=== PATIENT | female | born 1970 | race Caucasian/White ===

== ENCOUNTER 2018-06-20 12:46 | Inpatient (IN) | payer BC ==
--- NOTE | 2018-06-20 13:45 | C.PDOC ---
History Of Present Illness 47 year old female with PMHx of hypothyroidism who was sent in by PMD Dr. Nelson for redness and swelling to left lower face. Patient states she noticed a pimple in the area 2 days ago, which started draining clear and bloody fluid yesterday. Swelling, redness and 10/10 pain began yesterday as well. Treatment with warm compresses provided mild improvement from the pain. Denies fever, chills, shortness of breath, chest pain, difficulty swallowing, tongue swelling. <Geovanna Pulido P - Last Filed: 06/20/18 17:08> <Geovanna Pulido P - Last Filed: 06/20/18 17:08> <Kristy Alford - Last Filed: 06/20/18 17:21> Time Seen by Provider: 06/20/18 13:15 Chief Complaint (Nursing): Abnormal Skin Integrity Past Medical History Vital Signs: Last Vital Signs Temp 99.6 F 06/20/18 13:08 Pulse 104 H 06/20/18 13:08 Resp 18 06/20/18 13:08 BP 126/84 06/20/18 13:08 Pulse Ox 98 06/20/18 13:08 - Medical History PMH: Hyperthyroidism Surgical History: Hernia Repair (umbilical hernia) Other Surgeries: nasal polypectomy, rectocele repair Family History: States: CAD - Social History Hx Alcohol Use: No Hx Substance Use: No - Immunization History Hx Tetanus Toxoid Vaccination: No Hx Influenza Vaccination: No Hx Pneumococcal Vaccination: No <PulidoGeovanna P - Last Filed: 06/20/18 17:08> Vital Signs: Last Vital Signs Temp 98.6 F 06/20/18 15:48 Pulse 99 H 06/20/18 15:48 Resp 16 06/20/18 15:48 BP 116/74 06/20/18 15:48 Pulse Ox 98 06/20/18 15:48 <Kristy Alford - Last Filed: 06/20/18 17:21> Review Of Systems Constitutional: Negative for: Fever, Chills, Sweats ENT: Negative for: Ear Pain, Ear Discharge, Nose Pain, Throat Pain, Throat Swelling Cardiovascular: Negative for: Chest Pain Respiratory: Negative for: Cough, Shortness of Breath Gastrointestinal: Negative for: Nausea, Vomiting, Abdominal Pain Skin: Positive for: Other (redness, swelling, pain to L lower face) <Geovanna Pulido P - Last Filed: 06/20/18 17:08> Physical Exam - Physical Exam Appears: No Acute Distress Skin: Other (redness, swelling and tenderness to palpation from mid chin to L corner of mouth. Area is indurated with central punctate wound not actively draining fluid. No increased warmth noted.) Head: Atraumatic Eye(s): bilateral: Normal Inspection, PERRL, EOMI Nose: Other (+nasal congestion) Oral Mucosa: Moist, No Drooling Tongue: No Swelling, Other (deviated to the R, otherwise appears normal) Lips: Swelling (mild swelling to L lower lip, otherwise normal) Teeth: Other (missing several upper and lower molars, otherwise normal de ntition) Throat: Normal, No Erythema, No Exudate, No Drooling Neck: Normal ROM Lymphatic: Other (Bilateral tender lymphadenopathy) Cardiovascular: Rhythm Regular (tachycardic) Respiratory: Normal Breath Sounds, No Decreased Breath Sounds, No Accessory Muscle Use, No Rales, No Rhonchi, No Wheezing <Geovanna Pulido P - Last Filed: 06/20/18 17:08> ED Course And Treatment - Laboratory Results Result Diagrams: 06/20/18 14:01 06/20/18 14:01 O2 Sat by Pulse Oximetry: 98 <Geovanna Pulido P - Last Filed: 06/20/18 17:08> - Laboratory Results Result Diagrams: 06/20/18 14:01 06/20/18 14:01 Lab Interpretation: Abnormal (WBC 15.8 with left shift) - CT Scan/US Soft tissue neck Other Rad Studies (CT/US): Read By Radiologist, Radiology Report Reviewed CT/US Interpretation: Accession No. : [id number]. Patient Name / ID : LIANNE PAULINO / [id number]. Exam Date : 06/20/2018 15:25:51 ( Approved ). Study Comment : Sex / Age : F / 47Y. Creator : Kathleen White. Dictator : Rory Cottrell MD. Geographic Information Systems Engineer : Flux Tube Attendant : Rory Mack MD. Approver2 : Report Date : 06/20/2018 15:37:27. My Comment : . Date of service: 06/20/2018. PROCEDURE: CT NECK WITHOUT CONTRAST. HISTORY: r/o left submandibular abscess. COMPARISON: None available. TECHNIQUE: CT of the neck without intravenous contrast. Coronal and sagittal reformats generated. Radiation dose: Total exam DLP = 370.58 mGy-cm. This CT exam was performed using one or more of the following dose reduction techniques: Automated exposure control, adjustment of the mA and/or kV according to patient size, and/or use of iterative reconstruction technique. FINDINGS: NASOPHARYNX: Unremarkable. SUPRAHYOID NECK: There is prominent edema related to anterior and lateral left mandibular soft tissues primarily at the level of the horizontal ramus without emphysematous changes associated. Lack images contrast limits evaluation significantly an abscess is difficult to completely exclude here. Follow-up contrast CT is advised for better characterization. The changes extend into the superficial and deep left mandibular fat. Edematous changes may extend over to the superficial and deep subcutaneous fat anterior to the distal segment right horizontal ramus overlying mandibular soft tissues as well. The oral cavity and remainder the pharynx appear unremarkable grossly though partially obscured by artifact related to dental hardware. Shotty submandibular triangle lymph nodes are identified as well as at the upper jugulodigastric distribution. The visualized pharynx appears unremarkable. INFRAHYOID NECK: Unremarkable larynx, hypopharynx, and supraglottic space. Vocal cords intact. MASS: None. GLANDS: Parotid and submandibular glands unremarkable. Normal size thyroid gland, without nodule. LYMPH NODES: Normal. No lymphadenopathy. CERVICAL SPINE: No fracture or focal lesion. OTHER FINDI NGS: Extensive bilateral frontal, ethmoid and sphenoid sinusitis with mild bilateral maxillary mucosal inflammatory changes. IMPRESSION: Prominent pre mandibular edematous soft tissues are identified overlying the left horizontal mandibular ramus underlying abscess difficult to exclude given lack images contrast. Some may extend over to the right pre mandibular soft tissues crossing the mental region without definite abscess. Follow-up CT with contrast is recommended. Please see discussion above. Extensive sinusitis as discussed above. Progress Note: Patient seen and examined. Obvious swelling iwth induration along left mandible associated with shotty lymphadenopathy. No obvious oral swelling or sublingular swelling. No difficulty breathing or swallowing. - Physician Consult Information Time Consulting Physician Contacted: 17:03 Physician Contacted: Esvin Bradley-Galindo Outcome Of Conversation: Patient to be admitted to Dr Blake's service for IV antibiotics <Kristy Alford - Last Filed: 06/20/18 17:21> Medical Decision Making Medical Decision Making: Plan: CBC CMP CT neck soft tissue w/o contrast (due to patient iodine allergy) Ibuprofen for pain <Geovanna Pulido P - Last Filed: 06/20/18 17:08> Disposition <Geovanna Pulido - Last Filed: 06/20/18 17:08> - Disposition Disposition Time: 17:21 - POA Present On Arrival: None <Kristy Alford - Last Filed: 06/20/18 17:21> - Disposition Disposition: HOSPITALIZED Condition: STABLE - Clinical Impression Clinical Impression: Facial cellulitis
[2018-06-20 14:11] LABS: BASO # 0.1 K/uL (0.0-0.2); BASO % 0.5 % (0.0-2.0); EOS # 0.6 K/uL (0.0-0.7); HEMOGLOBIN 15.2 g/dL (11.0-16.0); LYMPH # 1.2 K/uL (1.0-4.3); LYMPH % 7.8 % (20.0-40.0); MEAN CELL VOLUME 89.7 fL (81.0-99.0); MEAN CORPUSCULAR HEMOGLOBIN 30.1 pg (27.0-31.0); MEAN CORPUSCULAR HGB CONC 33.6 g/dL (33.0-37.0); MEAN PLATELET VOLUME 9.5 fL (7.2-11.7); MONO # 1.2 K/uL (0.0-0.8); MONO % 7.3 % (0.0-10.0); NEUT # 12.7 K/uL (1.8-7.0); NEUT % 80.4 % (50.0-75.0); NRBC % 0.1 % (0.0-2.0); PLATELET COUNT 227 K/uL (130-400); RBC 5.05 Mil/uL (3.80-5.20); WHITE BLOOD COUNT 15.8 K/uL (4.8-10.8)
[2018-06-20 14:25] LABS: ALB/GLOB RATIO 1.4 (1.0-2.1); ALBUMIN 4.7 g/dL (3.5-5.0); ALT/SGPT 44 U/L (9-52); AST/SGOT 29 U/L (14-36); BLOOD UREA NITROGEN 15 mg/dL (7-17); CALCIUM 9.3 mg/dl (8.6-10.4); GFR NON-AFRICAN AMERICAN > 60
[2018-06-20 15:54] LABS: EOSINOPHIL 6 % (0-4); LYMPHOCYTE 2 % (20-40); MONOCYTE 6 % (0-10); NEUTROPHIL 86 % (50-75); PLATELET ESTIMATE NORMAL (NORMAL); TOTAL CELLS COUNTED 100
--- NOTE | 2018-06-20 16:47 | CT ---
Date of service: 06/20/2018 PROCEDURE: CT NECK WITHOUT CONTRAST HISTORY: r/o left submandibular abscess COMPARISON: None available. TECHNIQUE: CT of the neck without intravenous contrast. Coronal and sagittal reformats generated. Radiation dose: Total exam DLP = 370.58 mGy-cm. This CT exam was performed using one or more of the following dose reduction techniques: Automated exposure control, adjustment of the mA and/or kV according to patient size, and/or use of iterative reconstruction technique. FINDINGS: NASOPHARYNX: Unremarkable. SUPRAHYOID NECK: There is prominent edema related to anterior and lateral left mandibular soft tissues primarily at the level of the horizontal ramus without emphysematous changes associated. Lack images contrast limits evaluation significantly an abscess is difficult to completely exclude here. Follow-up contrast CT is advised for better characterization. The changes extend into the superficial and deep left mandibular fat. Edematous changes may extend over to the superficial and deep subcutaneous fat anterior to the distal segment right horizontal ramus overlying mandibular soft tissues as well. The oral cavity and remainder the pharynx appear unremarkable grossly though partially obscured by artifact related to dental hardware. Shotty submandibular triangle lymph nodes are identified as well as at the upper jugulodigastric distribution. The visualized pharynx appears unremarkable. INFRAHYOID NECK: Unremarkable larynx, hypopharynx, and supraglottic space. Vocal cords intact. MASS: None. GLANDS: Parotid and submandibular glands unremarkable. Normal size thyroid gland, without nodule. LYMPH NODES: Normal. No lymphadenopathy. CERVICAL SPINE: No fracture or focal lesion. OTHER FINDINGS: Extensive bilateral frontal, ethmoid and sphenoid sinusitis with mild bilateral maxillary mucosal inflammatory changes. IMPRESSION: Prominent pre mandibular edematous soft tissues are identified overlying the left horizontal mandibular ramus underlying abscess difficult to exclude given lack images contrast. Some may extend over to the right pre mandibular soft tissues crossing the mental region without definite abscess. Follow-up CT with contrast is recommended. Please see discussion above. Extensive sinusitis as discussed above.
[2018-06-20] MEDS ORDERED: cefTRIAXone IV 1 gm in Dextros 50 ML IVPB ONE (17:18)
[2018-06-20] MEDS ORDERED: Vancomycin 1 GM 1 GM/250 ML BAG IV SCH (17:30)
[2018-06-20] MEDS ORDERED: cefTRIAXone 1 gm 1 GM/100 ML BAG IVPB ONE (17:39)
[2018-06-20] MEDS ORDERED: Vancomycin 1 GM 1 GM/250 ML BAG IVPB ONE (17:39)
[2018-06-20 18:35] VITALS: RESP 20
--- NOTE | 2018-06-20 19:20 | CP.PCM.CON ---
History of Present Illness - History of Present Illness History of Present Illness: 47 year old female with PMHx of hypothyroidism who was sent in by PMD Dr. Nelson for redness and swelling to left lower face. Patient states she noticed a pimple in the area 2 days ago, which started draining clear and bloody fluid yesterday. Swelling, redness and 10/10 pain began yesterday as well. denies dental pain or discomfort large indurated area on lower mandible lateral to midline with pain on palpation but no purulence + warmth and redness denies allergies - Medical History PMH: Hyperthyroidism Surgical History: Hernia Repair (umbilical hernia) Other Surgeries: nasal polypectomy, rectocele repair Family History: States: CAD Review of Systems - Review of Systems All systems: reviewed and no additional remarkable complaints except Past Patient History - Infectious Disease Hx of Infectious Diseases: None - Past Social History Smoking Status: Never Smoked - ENDOCRINE/METABOLIC Hx Hyperthyroidism: Yes - PSYCHIATRIC Hx Substance Use: No - SURGICAL HISTORY Hx Surgeries: Yes Hx Herniorrhaphy: Yes Other/Comment: BOWEL RESECTION - ANESTHESIA Hx Anesthesia: Yes Hx Anesthesia Reactions: No Meds Allergies/Adverse Reactions: Allergies Allergy/AdvReac Type Severity Reaction Status Date / Time iodine Allergy Verified 06/20/18 13:07 - Medications Medications: Current Medications Enoxaparin Sodium (Lovenox) 40 mg SC DAILY [facility] Vancomycin HCl (Vancomycin 1gm In Normal Saline Addvantage) 1 gm in 250 mls @ 166.667 mls/hr IV STAT [facility]; Protocol Last Admin: 06/20/18 18:01 Dose: 166.667 mls/hr Vancomycin HCl 1,000 mg/ (Sodium Chloride) 250 mls @ 166.6 mls/hr IVPB Q12H [facility]; Protocol Piperacillin Sod/Tazobactam Sod (Zosyn 3.375 Gm Iv Premix) 3.375 gm in 50 mls @ 100 mls/hr IVPB Q8H [facility]; Protocol Levothyroxine Sodium (Synthroid) 25 mcg PO DAILY@0630 [facility] Physical Exam - Constitutional Appears: Chronically Ill - Head Exam Head Exam: ATRAUMATIC, NORMOCEPHALIC Additional comments: facial swelling + - Eye Exam Eye Exam: EOMI - ENT Exam ENT Exam: Mucous Membranes Dry - Neck Exam Neck exam: Negative for: Lymphadenopathy - Respiratory Exam Respiratory Exam: Decreased Breath Sounds - Cardiovascular Exam Cardiovascular Exam: REGULAR RHYTHM - GI/Abdominal Exam GI & Abdominal Exam: Diminished Bowel Sounds - Rectal Exam Rectal Exam: Deferred - Exam Exam: NORMAL INSPECTION - Extremities Exam Extremities exam: Negative for: pedal edema - Back Exam Back exam: absent: CVA tenderness (L), CVA tenderness (R) - Neurological Exam Neurological exam: Alert, CN II-XII Intact, Oriented x3, Reflexes Normal - Psychiatric Exam Psychiatric exam: Normal Mood - Skin Skin Exam: Dry Results - Vital Signs Recent Vital Signs: Last Vital Signs Temp 99.2 F 06/20/18 18:34 Pulse 87 06/20/18 18:34 Resp 20 06/20/18 18:34 BP 125/74 06/20/18 18:34 Pulse Ox 100 06/20/18 18:34 - Labs Result Diagrams: 06/21/18 08:11 06/21/18 08:11 Labs: Laboratory Results - last 24 hr 06/20/18 06/20/18 14:01 14:01 WBC 15.8 H RBC 5.05 Hgb 15.2 Hct 45.3 MCV 89.7 MCH 30.1 MCHC 33.6 RDW 14.0 Plt Count 227 MPV 9.5 Neut % (Auto) 80.4 H Lymph % (Auto) 7.8 L Brooke % (Auto) 7.3 Eos % (Auto) 4.0 Baso % (Auto) 0.5 Neut # (Auto) 12.7 H Lymph # (Auto) 1.2 Brooke # (Auto) 1.2 H Eos # (Auto) 0.6 Baso # (Auto) 0.1 Neutrophils % (Manual) 86 H Lymphocytes % (Manual) 2 L Monocytes % (Manual) 6 Eosinophils % (Manual) 6 H Platelet Estimate Normal Sodium 138 Potassium 4.8 Chloride 102 Carbon Dioxide 23 Anion Gap 20 BUN 15 Creatinine 0.5 L Est GFR ( Amer) > 60 Est GFR (Non-Af Amer) > 60 Random Glucose 79 Calcium 9.3 Total Bilirubin 1.0 AST 29 ALT 44 Alkaline Phosphatase 81 Total Protein 8.1 Albumin 4.7 Globulin 3.3 Albumin/Globulin Ratio 1.4 Assessment & Plan (1) Facial cellulitis Status: Acute - Assessment and Plan (Free Text) Assessment: mAY NEED i AND d CONSIDER SURGICAL CONSULT
--- NOTE | 2018-06-20 19:29 | CP.PCM.HP ---
History of Present Illness - History of Present Illness History of Present Illness: COMPREHENSIVE HISTORY & PHYSICAL EXAM HPI Patient is admitted with swelling of the lower part of the jaw. Patient originally had a pimple which grew suddenly in her short-term with moderate amount of swelling and induration in the lower part of the left side of the jaw extending to the angle of the mandible. There is no any gum disease or teeth problems or swallowing patient has no any sinus infection patient has no previous any medical illness except for hypothyroidism. Patient was evaluated in the ER CAT scan showed some indurated subcutaneous infection and patient is admitted for IV antibiotics PAST HIST. PERSONAL HIST: Smoking. N Alcohol. N Allergy N Travel_- . FAMILY HIST : ROS : Constitutional: Negative for weight change, chills, night sweats, fatigue and usage of assist device. Eyes: Negative for redness, swelling, itching, discharge, vision changes, blurry vision, double vision, glaucoma, cataracts, Ears: Negative for hearing loss, ringing, , tinnitus, vertigo Nose: Negative for rhinorrhea, stuffiness, sniffing, itching, postnasal drip, discoloration, nasal congestion and epistaxis. Throat: Negative for throat clearing, sore throat, hoarseness, difficulty swallowing and difficulty speaking. Respiratory: Negative for cough, , sputum production, chest tightness, wheezing, pleuritic chest pain ,daytime somnolence, chronic cough, hemoptysis, snoring at night, Cardiovascular: Negative for chest pain, palpitations, orthopnea, PND, Edema of legs, leg cramps, angina, claudication, , irregular heartbeat, Neurology: Negative for irritability, muscle weakness, numbness and tingling, seizures, tremors, migraines, slurred speech, syncope, memory loss, mood changes, recurrent headaches Gastrointestinal: Negative for difficulty swallowing, diarrhea, constipation, black stools, rectal bleeding, nausea, flatulence, reflux, poor appetite, changes in bowel habits, abdominal pain Genitourinary: Negative for frequent urination, hematuria, discharge, in continence, urinary retention, frequent UTI, Psychiatric: Negative for depression, anxiety/panic, suicidal tendencies, Musculoskeletal: Negative for swollen joints, back pain, , neck pain, morning st iffness of joints, . Skin: Negative for rash, ulcers, itching, dry skin and pigmented lesions. P/E: Constitutional: Appears stated age and in no apparent distress. Head: Normocephalic. Ears: External ear canals patent without inflammation. Tympanic membranes intact with normal light reflex and landmark. Eyes: Pupils are central, bilaterally equal, symmetrical and reacts to light with normal movements and no icterus or pallor. Nose: External nares are patent. Mucosa is pink Mouth-Throat: Good general appearance and condition. No post-pharyngeal/oropharyngeal erythema and tonsil lar hypertrophy. Good dental hygiene. Neck-Lymphatic: Neck is supple with normal ROM, no thyromegaly, lymph nodes or masses. JVD is normal with no carotid bruit. There is a 2-3 inches of swelling on the lower part of the jaw on the left side with surrounding cellulitis extending to the angle of the mandible there is some submandibular lymph nodes. The internal cavity of the mouth is normal there is no any swelling of the gums or any obvious pus. The teeth appears normal and the throat is clear. Lungs: Clear to percussion and auscultation with bilateral normal air entry. Cardiovascular: S1 and S2 are normal with no murmurs, gallops and rub. GI Exam: No hepatomegaly. Abdomen is soft and non-tender. No Organomegaly , masses or hernias are evident and bowel sounds are normal and active. Neurology: Higher function and all cranial nerves intact, with no gross motor or sensory deficit. Superficial and deep reflexes are normal with downwards planters. No cerebellar deficit with normal gait. Musculoskeletal: No tender spots with normal curvature of the spine with no swelling or restricted ROM of the small and large joints. Extremities: Homans sign absent. Intact pulses with no pitting edema, calf tenderness or skin color changes. Skin: No rash, eruptions or abnormal skin pigmentation LAB/RADIOLOGY: ASSESMENT : Soft tissue infection of the left side of the mandible with surrounding cellulitis. Hypothyroidism PLAN: Plan IV antibiotics ID evaluation Present on Admission - Present on Admission Any Indicators Present on Admission: No Past Patient History - Infectious Disease Hx of Infectious Diseases: None - Past Social History Smoking Status: Never Smoked - ENDOCRINE/METABOLIC Hx Hyperthyroidism: Yes - PSYCHIATRIC Hx Substance Use: No - SURGICAL HISTORY Hx Surgeries: Yes Hx Herniorrhaphy: Yes Other/Comment: BOWEL RESECTION - ANESTHESIA Hx Anesthesia: Yes Hx Anesthesia Reactions: No Meds Allergies/Adverse Reactions: Allergies Allergy/AdvReac Type Severity Reaction Status Date / Time iodine Allergy Verified 06/20/18 13:07 Results - Vital Signs Recent Vital Signs: Last Vital Signs Temp 99.2 F 06/20/18 18:34 Pulse 87 06/20/18 18:34 Resp 20 06/20/18 18:34 BP 125/74 06/20/18 18:34 Pulse Ox 100 06/20/18 18:34 - Labs Result Diagrams: 06/21/18 08:11 06/21/18 08:11 Labs: Laboratory Results - last 24 hr 06/20/18 06/20/18 14:01 14:01 WBC 15.8 H RBC 5.05 Hgb 15.2 Hct 45.3 MCV 89.7 MCH 30.1 MCHC 33.6 RDW 14.0 Plt Count 227 MPV 9.5 Neut % (Auto) 80.4 H Lymph % (Auto) 7.8 L [place] % (Auto) 7.3 Eos % (Auto) 4.0 Baso % (Auto) 0.5 Neut # (Auto) 12.7 H Lymph # (Auto) 1.2 [place] # (Auto) 1.2 H Eos # (Auto) 0.6 Baso # (Auto) 0.1 Neutrophils % (Manual) 86 H Lymphocytes % (Manual) 2 L Monocytes % (Manual) 6 Eosinophils % (Manual) 6 H Platelet Estimate Normal Sodium 138 Potassium 4.8 Chloride 102 Carbon Dioxide 23 Anion Gap 20 BUN 15 Creatinine 0.5 L Est GFR ( Amer) > 60 Est GFR (Non-Af Amer) > 60 Random Glucose 79 Calcium 9.3 Total Bilirubin 1.0 AST 29 ALT 44 Alkaline Phosphatase 81 Total Protein 8.1 Albumin 4.7 Globulin 3.3 Albumin/Globulin Ratio 1.4
[2018-06-20] MEDS: Piperacill/Tazo 3.375gm in Dex 3.375 GM/50 ML BAG IVPB SCH (20:22)
[2018-06-21] MEDS: Piperacill/Tazo 3.375gm in Dex 3.375 GM/50 ML BAG IVPB SCH ×3 (03:01→19:18)
[2018-06-21] MEDS: Levothyroxine 25 MCG TAB PO SCH (06:03)
[2018-06-21 08:18] LABS: BASO # 0.1 K/uL (0.0-0.2); BASO % 0.4 % (0.0-2.0); EOS # 0.5 K/uL (0.0-0.7); EOS % 3.2 % (0.0-4.0); HEMOGLOBIN 13.5 g/dL (11.0-16.0); LYMPH # 0.9 K/uL (1.0-4.3); MEAN CELL VOLUME 89.3 fL (81.0-99.0); MEAN CORPUSCULAR HEMOGLOBIN 30.2 pg (27.0-31.0); MEAN CORPUSCULAR HGB CONC 33.9 g/dL (33.0-37.0); MEAN PLATELET VOLUME 9.4 fL (7.2-11.7); MONO # 0.7 K/uL (0.0-0.8); MONO % 4.9 % (0.0-10.0); NEUT # 12.7 K/uL (1.8-7.0); NEUT % 85.5 % (50.0-75.0); PLATELET COUNT 219 K/uL (130-400); RBC 4.45 Mil/uL (3.80-5.20); WHITE BLOOD COUNT 14.9 K/uL (4.8-10.8)
[2018-06-21 08:37] LABS: ALB/GLOB RATIO 1.2 (1.0-2.1); ALBUMIN 3.8 g/dL (3.5-5.0); ALT/SGPT 51 U/L (9-52); AST/SGOT 28 U/L (14-36); BLOOD UREA NITROGEN 12 mg/dL (7-17); CALCIUM 8.7 mg/dl (8.6-10.4); GFR NON-AFRICAN AMERICAN > 60
[2018-06-21 09:10] LABS: EOSINOPHIL 4 % (0-4); LYMPHOCYTE 8 % (20-40); MONOCYTE 3 % (0-10); NEUTROPHIL 85 % (50-75); PLATELET ESTIMATE NORMAL (NORMAL); TOTAL CELLS COUNTED 100
[2018-06-21] MEDS: Enoxaparin 40 mg Syringe SC SCH (09:54)
[2018-06-21] MEDS ORDERED: Tetracaine 0.5% Ophth (OR ONLY) ONE (10:55)
[2018-06-21] MEDS ORDERED: Tobramycin/Dexamethasone OPHT OINT ONE (10:55)
[2018-06-21] MEDS ORDERED: Gentamicin 80 mg/2mL Inj. ONE (10:56)
[2018-06-21] MEDS ORDERED: Hyaluronidase Human, Recombi 150 U/ML VIAL ONE (10:56)
[2018-06-21] MEDS ORDERED: MethylPREDNISolone 40 mg Vial ONE (10:56)
[2018-06-21] MEDS ORDERED: Povidone Iodine Ophthalmic 5% Soln ONE (10:56)
--- NOTE | 2018-06-21 14:26 | CP.PCM.PN ---
Subjective - Date & Time of Evaluation Date of Evaluation: 06/21/18 Time of Evaluation: 14:24 - Subjective Subjective: CHIEF COMPLAINTS TODAY : Patient has less pain on the lower jaw. No fever or difficulty swallowing ROS. HEENT : N. Resp : No cough, wheezing ,pleuritic CP ,or hemoptysis Cardio : No anginal CP, PND, orthopnea, palpitation GI : No abd.pain, n/v ,diarrhea or GI bleeding . 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 Musculoskel : No joint swelling , Derm : No rash Psych : Normal affect. Ext : No swelling ,calf pain PE. Pt. is alert awake in no distress. V.S As noted in the chart Head ,ear nose,throat and eyes : Normal. Neck : Supple with normal carotids. The swelling on the left side of the mandible persist with surrounding cellulitis extending to the angle of mandible Lungs: Clear air entry. Heart : S1 & S2 normal with S4. No murmur. Abd : Soft non tender with normal bowel sounds. Neuro : Moves all ext. with no localized deficit. Ext : No edema with intact pulses.Non tender calves Derm : No rashes or decubitus ulcer. LABS/RADIOLOGY: Repeat WBC count is 14.2 blood cultures pending ASSESSMENT/PLAN : Continue IV antibiotics. Objective - Vital Signs/Intake and Output Vital Signs (last 24 hours): Temp Pulse Resp BP Pulse Ox 100.0 F H 101 H 20 114/72 97 06/21/18 08:15 06/21/18 08:15 06/21/18 08:15 06/21/18 08:15 06/21/18 08:15 - Medications Medications: Current Medications Enoxaparin Sodium (Lovenox) 40 mg SC DAILY [facility] Last Admin: 06/21/18 09:54 Dose: 40 mg Piperacillin Sod/Tazobactam Sod (Zosyn 3.375 Gm Iv Premix) 3.375 gm in 50 mls @ 100 mls/hr IVPB Q8H [facility]; Protocol Last Admin: 06/21/18 10:55 Dose: 100 mls/hr Vancomycin HCl 1,000 mg/ (Sodium Chloride) 250 mls @ 166.6 mls/hr IVPB Q12H [facility] ; Protocol Last Admin: 06/21/18 06:04 Dose: 166.6 mls/hr Levothyroxine Sodium (Synthroid) 25 mcg PO DAILY@0630 [facility] Last Admin: 06/21/18 06:03 Dose: 25 mcg - Labs Labs: 06/21/18 08:11 06/21/18 08:11
--- NOTE | 2018-06-21 19:54 | CP.PCM.PN ---
Subjective - Date & Time of Evaluation Date of Evaluation: 06/21/18 Time of Evaluation: 09:00 - Subjective Subjective: pain and swelling lower face + no fever may need I and D Objective - Vital Signs/Intake and Output Vital Signs (last 24 hours): Temp Pulse Resp BP Pulse Ox 99.3 F 106 H 20 115/76 98 06/21/18 16:00 06/21/18 16:00 06/21/18 16:00 06/21/18 16:00 06/21/18 16:00 - Medications Medications: Current Medications Enoxaparin Sodium (Lovenox) 40 mg SC DAILY [facility] Last Admin: 06/21/18 09:54 Dose: 40 mg Piperacillin Sod/Tazobactam Sod (Zosyn 3.375 Gm Iv Premix) 3.375 gm in 50 mls @ 100 mls/hr IVPB Q8H [facility]; Protocol Last Admin: 06/21/18 19:18 Dose: 100 mls/hr Vancomycin HCl 1,000 mg/ (Sodium Chloride) 250 mls @ 166.6 mls/hr IVPB Q12H [facility]; Protocol Last Admin: 06/21/18 17:32 Dose: 166.6 mls/hr Levothyroxine Sodium (Synthroid) 25 mcg PO DAILY@0630 [facility] Last Admin: 06/21/18 06:03 Dose: 25 mcg - Labs Labs: 06/21/18 08:11 06/21/18 08:11 - Constitutional Appears: Well - Head Exam Head Exam: ATRAUMATIC, NORMAL INSPECTION, NORMOCEPHALIC - Eye Exam Eye Exam: EOMI, Normal appearance, PERRL Pupil Exam: NORMAL ACCOMODATION, PERRL - ENT Exam ENT Exam: Mucous Membranes Moist, Normal Exam - Neck Exam Neck Exam: Full ROM, Normal Inspection. absent: Lymphadenopathy - Respiratory Exam Respiratory Exam: Clear to Ausculation Bilateral, NORMAL BREATHING PATTERN - Cardiovascular Exam Cardiovascular Exam: REGULAR RHYTHM, +S1, +S2. absent: Murmur - GI/Abdominal Exam GI & Abdominal Exam: Soft, Normal Bowel Sounds. absent: Tenderness - Rectal Exam Rectal Exam: NORMAL INSPECTION - Extremities Exam Extremities Exam: Full ROM, Normal Capillary Refill, Normal Inspection. absent: Joint Swelling, Pedal Edema - Back Exam Back Exam: NORMAL INSPECTION - Neurological Exam Neurological Exam: Alert, Awake, CN II-XII Intact, Normal Gait, Oriented x3 - Psychiatric Exam Psychiatric exam: Normal Affect, Normal Mood - Skin Skin Exam: Dry, Intact, Normal Color, Warm Assessment and Plan - Assessment and Plan (Free Text) Plan: consider I and D cont iv rx
[2018-06-22] MEDS: Piperacill/Tazo 3.375gm in Dex 3.375 GM/50 ML BAG IVPB SCH ×3 (03:45→19:30)
[2018-06-22] MEDS: Levothyroxine 25 MCG TAB PO SCH (06:03)
[2018-06-22 07:39] LABS: BASO # 0.1 K/uL (0.0-0.2); BASO % 0.7 % (0.0-2.0); EOS # 1.1 K/uL (0.0-0.7); EOS % 8.2 % (0.0-4.0); HEMOGLOBIN 13.4 g/dL (11.0-16.0); LYMPH # 1.6 K/uL (1.0-4.3); LYMPH % 12.8 % (20.0-40.0); MEAN CELL VOLUME 90.1 fL (81.0-99.0); MEAN CORPUSCULAR HEMOGLOBIN 29.9 pg (27.0-31.0); MEAN CORPUSCULAR HGB CONC 33.2 g/dL (33.0-37.0); MEAN PLATELET VOLUME 10.5 fL (7.2-11.7); MONO # 1.1 K/uL (0.0-0.8); MONO % 8.8 % (0.0-10.0); NEUT # 8.9 K/uL (1.8-7.0); NEUT % 69.5 % (50.0-75.0); RBC 4.49 Mil/uL (3.80-5.20); RED CELL DISTRIBUTION WIDTH 13.8 % (11.5-14.5); WHITE BLOOD COUNT 12.8 K/uL (4.8-10.8)
[2018-06-22 08:34] LABS: ALB/GLOB RATIO 1.3 (1.0-2.1); ALBUMIN 4.1 g/dL (3.5-5.0); ALT/SGPT 45 U/L (9-52); AST/SGOT 30 U/L (14-36); BLOOD UREA NITROGEN 9 mg/dL (7-17); CALCIUM 8.9 mg/dl (8.6-10.4); GFR NON-AFRICAN AMERICAN > 60
[2018-06-22] MEDS: Enoxaparin 40 mg Syringe SC SCH (10:17)
--- NOTE | 2018-06-22 14:13 | CP.PCM.PN ---
Subjective - Date & Time of Evaluation Date of Evaluation: 06/22/18 Time of Evaluation: 14:13 - Subjective Subjective: CHIEF COMPLAINTS TODAY : Patient has less pain on the lower jaw. No fever or difficulty swallowing ROS. HEENT : N. Resp : No cough, wheezing ,pleuritic CP ,or hemoptysis Cardio : No anginal CP, PND, orthopnea, palpitation GI : No abd.pain, n/v ,diarrhea or GI bleeding . 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 Musculoskel : No joint swelling , Derm : No rash Psych : Normal affect. Ext : No swelling ,calf pain PE. Pt. is alert awake in no distress. V.S As noted in the chart Head ,ear nose,throat and eyes : Normal. Neck : Supple with normal carotids. The swelling on the left side of the mandible persist with surrounding cellulitis extending to the angle of mandible Lungs: Clear air entry. Heart : S1 & S2 normal with S4. No murmur. Abd : Soft non tender with normal bowel sounds. Neuro : Moves all ext. with no localized deficit. Ext : No edema with intact pulses.Non tender calves Derm : No rashes or decubitus ulcer. LABS/RADIOLOGY: Repeat WBC count is 14.2 blood cultures pending ASSESSMENT/PLAN : Continue IV antibiotics. surgical evaluation for incision and drainage Objective - Vital Signs/Intake and Output Vital Signs (last 24 hours): Temp Pulse Resp BP Pulse Ox 97 F L 68 20 117/68 97 06/22/18 08:00 06/22/18 08:00 06/22/18 08:00 06/22/18 08:00 06/22/18 08:00 Intake and Output: 06/22/18 06/22/18 11:59 23:59 Intake Total 480 Balance 480 - Medications Medications: Current Medications Enoxaparin Sodium (Lovenox) 40 mg SC DAILY [facility] Last Admin: 06/22/18 10:17 Dose: 40 mg Piperacillin Sod/Tazobactam Sod (Zosyn 3.375 Gm Iv Premix) 3.375 gm in 50 mls @ 100 mls/hr IVPB Q8H [facility]; Protocol Last Admin: 06/22/18 11:35 Dose: 100 mls/hr Vancomycin HCl 1,000 mg/ (Sodium Chloride) 250 mls @ 166.6 mls/hr IVPB Q12H [facility]; Protocol Last Admin: 06/22/18 06:05 Dose: 166.6 mls/hr Ibuprofen (Motrin Tab) 400 mg PO Q8H [facility] Last Admin: 06/22/18 13:05 Dose: 400 mg Levothyroxine Sodium (Synthroid) 25 mcg PO DAILY@0630 [facility] Last Admin: 06/22/18 06:03 Dose: 25 mcg - Labs Labs: 06/22/18 07:32 06/22/18 07:32
[2018-06-22] MEDS ORDERED: Iodixanol 320 mg/ml 150 ml Bottle IV ONE (18:14)
--- NOTE | 2018-06-22 19:28 | CP.PCM.PN ---
Subjective - Date & Time of Evaluation Date of Evaluation: 06/22/18 Time of Evaluation: 07:00 - Subjective Subjective: c/o painful swelling of face may benefit from I and D Objective - Vital Signs/Intake and Output Vital Signs (last 24 hours): Temp Pulse Resp BP Pulse Ox 98.1 F 88 20 112/76 97 06/22/18 15:17 06/22/18 15:17 06/22/18 15:17 06/22/18 15:17 06/22/18 15:17 Intake and Output: 06/22/18 06/23/18 18:59 06:59 Intake Total 480 Balance 480 - Medications Medications: Current Medications Enoxaparin Sodium (Lovenox) 40 mg SC DAILY [facility] Last Admin: 06/22/18 10:17 Dose: 40 mg Piperacillin Sod/Tazobactam Sod (Zosyn 3.375 Gm Iv Premix) 3.375 gm in 50 mls @ 100 mls/hr IVPB Q8H [facility]; Protocol Last Admin: 06/22/18 11:35 Dose: 100 mls/hr Vancomycin HCl 1,000 mg/ (Sodium Chloride) 250 mls @ 166.6 mls/hr IVPB Q12H [facility]; Protocol Last Admin: 06/22/18 17:35 Dose: 166.6 mls/hr Ibuprofen (Motrin Tab) 400 mg PO Q8H [facility] Last Admin: 06/22/18 13:05 Dose: 400 mg Levothyroxine Sodium (Synthroid) 25 mcg PO DAILY@0630 [facility] Last Admin: 06/22/18 06:03 Dose: 25 mcg - Labs Labs: 06/22/18 07:32 06/22/18 07:32 - Constitutional Appears: Non-toxic, Chronically Ill - Head Exam Head Exam: NORMOCEPHALIC - Eye Exam Eye Exam: PERRL. absent: Scleral icterus - ENT Exam ENT Exam: Mucous Membranes Dry - Neck Exam Neck Exam: absent: Lymphadenopathy - Respiratory Exam Respiratory Exam: Decreased Breath Sounds - Cardiovascular Exam Cardiovascular Exam: REGULAR RHYTHM - GI/Abdominal Exam GI & Abdominal Exam: Distended, Soft Assessment and Plan (1) Facial cellulitis Status: Acute - Assessment and Plan (Free Text) Assessment: cont iv rx and consider I and D
[2018-06-23] MEDS: Piperacill/Tazo 3.375gm in Dex 3.375 GM/50 ML BAG IVPB SCH ×3 (03:34→20:30)
[2018-06-23 04:42] LABS: BASO # 0.1 K/uL (0.0-0.2); BASO % 0.6 % (0.0-2.0); EOS # 1.9 K/uL (0.0-0.7); EOS % 19.2 % (0.0-4.0); HEMOGLOBIN 13.7 g/dL (11.0-16.0); LYMPH # 2.2 K/uL (1.0-4.3); LYMPH % 23.1 % (20.0-40.0); MEAN CELL VOLUME 89.2 fL (81.0-99.0); MEAN CORPUSCULAR HGB CONC 33.6 g/dL (33.0-37.0); MEAN PLATELET VOLUME 9.5 fL (7.2-11.7); MONO # 1.1 K/uL (0.0-0.8); MONO % 11.6 % (0.0-10.0); NEUT # 4.4 K/uL (1.8-7.0); NEUT % 45.5 % (50.0-75.0); RBC 4.58 Mil/uL (3.80-5.20); RED CELL DISTRIBUTION WIDTH 13.7 % (11.5-14.5); WHITE BLOOD COUNT 9.7 K/uL (4.8-10.8)
[2018-06-23 05:11] LABS: ALB/GLOB RATIO 1.1 (1.0-2.1); ALBUMIN 3.8 g/dL (3.5-5.0); ALT/SGPT 43 U/L (9-52); AST/SGOT 19 U/L (14-36); BLOOD UREA NITROGEN 11 mg/dL (7-17); GFR NON-AFRICAN AMERICAN > 60
[2018-06-23] MEDS: Levothyroxine 25 MCG TAB PO SCH (06:26)
[2018-06-23] MEDS: Enoxaparin 40 mg Syringe SC SCH (09:34)
--- NOTE | 2018-06-23 14:27 | CT ---
Date of service: 06/22/2018 PROCEDURE: CT NECK WITH CONTRAST HISTORY: facial cellulitis COMPARISON: None available. TECHNIQUE: CT of the neck with intravenous contrast. Coronal and sagittal reformats generated. Intravenous contrast dose: Visipaque 320, 100 cc Radiation dose: Total exam DLP = 285.64 mGy-cm. This CT exam was performed using one or more of the following dose reduction techniques: Automated exposure control, adjustment of the mA and/or kV according to patient size, and/or use of iterative reconstruction technique. FINDINGS: In the interval, diminishing reactive changes are identified anterior to the low horizontal ramus in superficial and deep soft tissues compatible with cellulitis likely including phlegmon. No abscess appreciated. These changes are again seen encroaching the mental soft tissues but do not encroach the submandibular or submental spaces. No reactive bony changes are appreciated to suggest osteomyelitis at the mandible. No significant supra or infrahyoid neck lymphadenopathy. Remainder the examination is remarkable only for multifocal ethmoid and bilateral maxillary as well as sphenoid sinusitis once again. The salivary glands and the thyroid gland are unremarkable once again as well as the pharynx larynx and visualized trachea. The oral cavity is nonfocal. OTHER FINDINGS: None. IMPRESSION: Mildly improved left mandibular cellulitis without definite abscess at this time. No abscess identified.
--- NOTE | 2018-06-23 15:21 | CP.PCM.PN ---
Subjective - Date & Time of Evaluation Date of Evaluation: 06/23/18 Time of Evaluation: 15:20 - Subjective Subjective: CHIEF COMPLAINTS TODAY : Patient has less pain on the lower jaw. No fever or difficulty swallowing ROS. HEENT : N. Resp : No cough, wheezing ,pleuritic CP ,or hemoptysis Cardio : No anginal CP, PND, orthopnea, palpitation GI : No abd.pain, n/v ,diarrhea or GI bleeding . 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 Musculoskel : No joint swelling , Derm : No rash Psych : Normal affect. Ext : No swelling ,calf pain PE. Pt. is alert awake in no distress. V.S As noted in the chart Head ,ear nose,throat and eyes : Normal. Neck : Supple with normal carotids. The swelling on the left side of the mandible persist with surrounding cellulitis extending to the angle of mandible Lungs: Clear air entry. Heart : S1 & S2 normal with S4. No murmur. Abd : Soft non tender with normal bowel sounds. Neuro : Moves all ext. with no localized deficit. Ext : No edema with intact pulses.Non tender calves Derm : No rashes or decubitus ulcer. LABS/RADIOLOGY: Repeat WBC count is 14.2 blood cultures pending ASSESSMENT/PLAN : Continue IV antibiotics. surgical evaluation for incision and drainage Awaiting ENT eval Repeat Ct neck no abscess Objective - Vital Signs/Intake and Output Vital Signs (last 24 hours): Temp Pulse Resp BP Pulse Ox 98.4 F 64 20 106/62 97 06/23/18 00:00 06/23/18 04:02 06/23/18 04:02 06/23/18 04:02 06/23/18 04:05 Intake and Output: 06/23/18 06/23/18 11:59 23:59 Intake Total 400 Balance 400 - Medications Medications: Current Medications Enoxaparin Sodium (Lovenox) 40 mg SC DAILY [facility] Last Admin: 06/23/18 09:34 Dose: 40 mg Piperacillin Sod/Tazobactam Sod (Zosyn 3.375 Gm Iv Premix) 3.375 gm in 50 mls @ 100 mls/hr IVPB Q8H [facility]; Protocol Last Admin: 06/23/18 10:43 Dose: 100 mls/hr Vancomycin HCl 1,000 mg/ (Sodium Chloride) 250 mls @ 166.6 mls/hr IVPB Q12H [facility]; Protocol Last Admin: 06/23/18 05:58 Dose: 166.6 mls/hr Ibuprofen (Motrin Tab) 400 mg PO Q8H [facility] Last Admin: 06/23/18 12:15 Dose: 400 mg Levothyroxine Sodium (Synthroid) 25 mcg PO DAILY@0630 [facility] Last Admin: 06/23/18 06:26 Dose: 25 mcg - Labs Labs: 06/23/18 04:38 06/23/18 04:38
[2018-06-24] MEDS: Piperacill/Tazo 3.375gm in Dex 3.375 GM/50 ML BAG IVPB SCH ×3 (03:41→19:30)
[2018-06-24] MEDS: Levothyroxine 25 MCG TAB PO SCH (05:53)
[2018-06-24] MEDS: Enoxaparin 40 mg Syringe SC SCH (09:37)
--- NOTE | 2018-06-24 16:05 | CP.PCM.PN ---
Subjective - Date & Time of Evaluation Date of Evaluation: 06/24/18 Time of Evaluation: 16:03 - Subjective Subjective: CHIEF COMPLAINTS TODAY : Patient has less pain on the lower jaw. No fever or difficulty swallowing ROS. HEENT : N. Resp : No cough, wheezing ,pleuritic CP ,or hemoptysis Cardio : No anginal CP, PND, orthopnea, palpitation GI : No abd.pain, n/v ,diarrhea or GI bleeding . 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 Musculoskel : No joint swelling , Derm : No rash Psych : Normal affect. Ext : No swelling ,calf pain PE. Pt. is alert awake in no distress. V.S As noted in the chart Head ,ear nose,throat and eyes : Normal. Neck : Supple with normal carotids. The swelling on the left side of the mandible persist with surrounding cellulitis extending to the angle of mandible SMALL AMOUNT OF PUS IS OOZING Lungs: Clear air entry. Heart : S1 & S2 normal with S4. No murmur. Abd : Soft non tender with normal bowel sounds. Neuro : Moves all ext. with no localized deficit. Ext : No edema with intact pulses.Non tender calves Derm : No rashes or decubitus ulcer. LABS/RADIOLOGY: Repeat WBC count is 14.2 blood cultures pending ASSESSMENT/PLAN : Continue IV antibiotics. CAN NOT GET ANY SURGICAL SERVICE FOR I&D CHECK C/S OF WOUND Objective - Vital Signs/Intake and Output Vital Signs (last 24 hours): Temp Pulse Resp BP Pulse Ox 97.9 F 62 20 101/65 98 06/24/18 07:37 06/24/18 07:37 06/24/18 07:37 06/24/18 07:37 06/24/18 07:37 Intake and Output: 06/24/18 06/24/18 11:59 23:59 Intake Total 540 400 Balance 540 400 - Medications Medications: Current Medications Enoxaparin Sodium (Lovenox) 40 mg SC DAILY [facility] Last Admin: 06/24/18 09:37 Dose: 40 mg Piperacillin Sod/Tazobactam Sod (Zosyn 3.375 Gm Iv Premix) 3.375 gm in 50 mls @ 100 mls/hr IVPB Q8H [facility]; Protocol Last Admin: 06/24/18 11:16 Dose: 100 mls/hr Vancomycin HCl 1,000 mg/ (Sodium Chloride) 250 mls @ 166.6 mls/hr IVPB Q12H [facility]; Protocol Last Admin: 06/24/18 05:13 Dose: 166.6 mls/hr Ibuprofen (Motrin Tab) 400 mg PO Q8H [facility] Last Admin: 06/24/18 11:51 Dose: 400 mg Influenza Virus Vaccine (Fluzone Quad [id number]) 60 mcg IM .ONCE ONE Stop: 06/25/18 10:01 Levothyroxine Sodium (Synthroid) 25 mcg PO DAILY@0630 [facility] Last Admin: 06/24/18 05:53 Dose: 25 mcg Pneumococcal Polyvalent Vaccine (Pneumovax 23 Vaccine) 0.5 ml IM .ONCE ONE Stop: 06/25/18 10:01 - Labs Labs: 06/23/18 04:38 06/23/18 04:38
--- NOTE | 2018-06-24 17:44 | CP.PCM.PN ---
Subjective - Date & Time of Evaluation Date of Evaluation: 06/24/18 Time of Evaluation: 08:00 - Subjective Subjective: s/p I and D swelling less await cultures Objective - Vital Signs/Intake and Output Vital Signs (last 24 hours): Temp Pulse Resp BP Pulse Ox 98.1 F 69 20 109/71 99 06/24/18 16:00 06/24/18 16:00 06/24/18 16:00 06/24/18 16:00 06/24/18 16:00 Intake and Output: 06/24/18 06/24/18 06:59 18:59 Intake Total 1290 400 Balance 1290 400 - Medications Medications: Current Medications Enoxaparin Sodium (Lovenox) 40 mg SC DAILY [facility] Last Admin: 06/24/18 09:37 Dose: 40 mg Piperacillin Sod/Tazobactam Sod (Zosyn 3.375 Gm Iv Premix) 3.375 gm in 50 mls @ 100 mls/hr IVPB Q8H [facility]; Protocol Last Admin: 06/24/18 11:16 Dose: 100 mls/hr Vancomycin HCl 1,000 mg/ (Sodium Chloride) 250 mls @ 166.6 mls/hr IVPB Q12H [facility]; Protocol Last Admin: 06/24/18 17:34 Dose: 166.6 mls/hr Ibuprofen (Motrin Tab) 400 mg PO Q8H [facility] Last Admin: 06/24/18 11:51 Dose: 400 mg Influenza Virus Vaccine (Fluzone Quad [id number]) 60 mcg IM .ONCE ONE Stop: 06/25/18 10:01 Levothyroxine Sodium (Synthroid) 25 mcg PO DAILY@0630 [facility] Last Admin: 06/24/18 05:53 Dose: 25 mcg Pneumococcal Polyvalent Vaccine (Pneumovax 23 Vaccine) 0.5 ml IM .ONCE ONE Stop: 06/25/18 10:01 - Labs Labs: 06/23/18 04:38 06/23/18 04:38 - Constitutional Appears: Non-toxic, Chronically Ill - Head Exam Head Exam: NORMOCEPHALIC - Eye Exam Eye Exam: absent: Nystagmus, Scleral icterus - ENT Exam ENT Exam: Mucous Membranes Dry - Neck Exam Neck Exam: absent: Lymphadenopathy, Thyromegaly - Respiratory Exam Respiratory Exam: Decreased Breath Sounds, Clear to Ausculation Bilateral - Cardiovascular Exam Cardiovascular Exam: REGULAR RHYTHM, +S1, +S2 - GI/Abdominal Exam GI & Abdominal Exam: Distended, Soft. absent: Tenderness - Rectal Exam Rectal Exam: Deferred - Exam Exam: NORMAL INSPECTION - Extremities Exam Extremities Exam: absent: Pedal Edema - Back Exam Back Exam: absent: CVA tenderness (L), CVA tenderness (R) - Neurological Exam Neurological Exam: Alert, Awake, Oriented x3 Assessment and Plan (1) Facial cellulitis Status: Acute - Assessment and Plan (Free Text) Assessment: cont iv rx
[2018-06-25] MEDS: Piperacill/Tazo 3.375gm in Dex 3.375 GM/50 ML BAG IVPB SCH ×3 (03:35→18:50)
[2018-06-25] MEDS: Levothyroxine 25 MCG TAB PO SCH (05:30)
[2018-06-25] MEDS: Enoxaparin 40 mg Syringe SC SCH (09:26)
[2018-06-25] MEDS ORDERED: Influenza Vaccine 60 MCG/0.5 ML SYR (3 yr & up) IM ONE (10:00)
[2018-06-25] MEDS ORDERED: Pneumococcal 23-Valent Vaccine IM ONE (10:00)
--- NOTE | 2018-06-25 11:18 | CP.PCM.PN ---
Subjective - Date & Time of Evaluation Date of Evaluation: 06/25/18 Time of Evaluation: 11:17 - Subjective Subjective: CHIEF COMPLAINTS TODAY : Patient has less pain on the lower jaw. No fever or difficulty swallowing ROS. HEENT : N. Resp : No cough, wheezing ,pleuritic CP ,or hemoptysis Cardio : No anginal CP, PND, orthopnea, palpitation GI : No abd.pain, n/v ,diarrhea or GI bleeding . 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 Musculoskel : No joint swelling , Derm : No rash Psych : Normal affect. Ext : No swelling ,calf pain PE. Pt. is alert awake in no distress. V.S As noted in the chart Head ,ear nose,throat and eyes : Normal. Neck : Supple with normal carotids. The swelling on the left side of the mandible persist with surrounding cellulitis extending to the angle of mandible Lungs: Clear air entry. Heart : S1 & S2 normal with S4. No murmur. Abd : Soft non tender with normal bowel sounds. Neuro : Moves all ext. with no localized deficit. Ext : No edema with intact pulses.Non tender calves Derm : No rashes or decubitus ulcer. LABS/RADIOLOGY: gram pos cocci from the wound ASSESSMENT/PLAN : iv ab Objective - Vital Signs/Intake and Output Vital Signs (last 24 hours): Temp Pulse Resp BP Pulse Ox 98.6 F 60 20 100/66 98 06/25/18 07:00 06/25/18 07:00 06/25/18 07:00 06/25/18 07:00 06/25/18 07:00 Intake and Output: 06/24/18 06/25/18 23:59 11:59 Intake Total 950 Balance 950 - Medications Medications: Current Medications Enoxaparin Sodium (Lovenox) 40 mg SC DAILY [facility] Last Admin: 06/25/18 09:26 Dose: 40 mg Piperacillin Sod/Tazobactam Sod (Zosyn 3.375 Gm Iv Premix) 3.375 gm in 50 mls @ 100 mls/hr IVPB Q8H [facility]; Protocol Last Admin: 06/25/18 03:35 Dose: 100 mls/hr Vancomycin HCl 1,000 mg/ (Sodium Chloride) 250 mls @ 166.6 mls/hr IVPB Q12H [facility]; Protocol Last Admin: 06/25/18 05:26 Dose: 166.6 mls/hr Ibuprofen (Motrin Tab) 400 mg PO Q8H [facility] Last Admin: 06/25/18 03:48 Dose: 400 mg Levothyroxine Sodium (Synthroid) 25 mcg PO DAILY@0630 [facility] Last Admin: 06/25/18 05:30 Dose: 25 mcg - Labs Labs: 06/23/18 04:38 06/23/18 04:38
--- NOTE | 2018-06-25 12:33 | CP.PCM.PN ---
Subjective - Date & Time of Evaluation Date of Evaluation: 06/25/18 Time of Evaluation: 07:00 - Subjective Subjective: rx renewed await culture Objective - Vital Signs/Intake and Output Vital Signs (last 24 hours): Temp Pulse Resp BP Pulse Ox 98.6 F 60 20 100/66 98 06/25/18 07:00 06/25/18 07:00 06/25/18 07:00 06/25/18 07:00 06/25/18 07:00 Intake and Output: 06/25/18 06/25/18 06:59 18:59 Intake Total 550 Balance 550 - Medications Medications: Current Medications Enoxaparin Sodium (Lovenox) 40 mg SC DAILY [facility] Last Admin: 06/25/18 09:26 Dose: 40 mg Piperacillin Sod/Tazobactam Sod (Zosyn 3.375 Gm Iv Premix) 3.375 gm in 50 mls @ 100 mls/hr IVPB Q8H [facility]; Protocol Last Admin: 06/25/18 03:35 Dose: 100 mls/hr Vancomycin HCl 1,000 mg/ (Sodium Chloride) 250 mls @ 166.6 mls/hr IVPB Q12H [facility]; Protocol Last Admin: 06/25/18 05:26 Dose: 166.6 mls/hr Ibuprofen (Motrin Tab) 400 mg PO Q8H [facility] Last Admin: 06/25/18 03:48 Dose: 400 mg Levothyroxine Sodium (Synthroid) 25 mcg PO DAILY@0630 [facility] Last Admin: 06/25/18 05:30 Dose: 25 mcg - Labs Labs: 06/23/18 04:38 06/23/18 04:38 - Constitutional Appears: Non-toxic - Head Exam Head Exam: NORMOCEPHALIC - Eye Exam Eye Exam: absent: Scleral icterus - ENT Exam ENT Exam: Mucous Membranes Dry - Neck Exam Neck Exam: absent: Lymphadenopathy - Cardiovascular Exam Cardiovascular Exam: +S1, +S2 - GI/Abdominal Exam GI & Abdominal Exam: Distended Assessment and Plan (1) Facial cellulitis Status: Acute
[2018-06-26] MEDS: Piperacill/Tazo 3.375gm in Dex 3.375 GM/50 ML BAG IVPB SCH ×2 (03:31→11:21)
[2018-06-26] MEDS: Levothyroxine 25 MCG TAB PO SCH (05:37)
[2018-06-26 08:02] VITALS: BP 98/65; PULSE 65; TEMP 98.2; O2SAT 97
[2018-06-26] MEDS: Enoxaparin 40 mg Syringe SC SCH (09:16)
--- NOTE | 2018-06-26 13:02 | CP.PCM.PN ---
Subjective - Date & Time of Evaluation Date of Evaluation: 06/26/18 Time of Evaluation: 08:00 - Subjective Subjective: wound + MRSA cellulitis resolving induration + d/c on oral zyvox x 5days follow up with Dr Blake Objective - Vital Signs/Intake and Output Vital Signs (last 24 hours): Temp Pulse Resp BP Pulse Ox 98.2 F 65 20 98/65 L 97 06/26/18 08:00 06/26/18 08:00 06/26/18 08:00 06/26/18 08:00 06/26/18 08:00 Intake and Output: 06/26/18 06/26/18 06:59 18:59 Intake Total 350 Balance 350 - Medications Medications: Current Medications Enoxaparin Sodium (Lovenox) 40 mg SC DAILY [facility] BEDS AT [facility] Last Admin: 06/26/18 09:16 Dose: 40 mg Piperacillin Sod/Tazobactam Sod (Zosyn 3.375 Gm Iv Premix) 3.375 gm in 50 mls @ 100 mls/hr IVPB Q8H [facility]; Protocol Last Admin: 06/26/18 11:21 Dose: 100 mls/hr Vancomycin HCl 1,000 mg/ (Sodium Chloride) 250 mls @ 166.6 mls/hr IVPB Q12H [facility]; Protocol Last Admin: 06/26/18 05:12 Dose: 166.6 mls/hr Ibuprofen (Motrin Tab) 400 mg PO Q8H [facility] Last Admin: 06/26/18 11:21 Dose: 400 mg Levothyroxine Sodium (Synthroid) 25 mcg PO DAILY@0630 [facility] Last Admin: 06/26/18 05:37 Dose: 25 mcg - Labs Labs: 06/23/18 04:38 06/23/18 04:38 Assessment and Plan (1) Facial cellulitis Status: Acute
--- NOTE | 2018-06-26 14:09 | CP.PCM.DIS ---
Provider - Provider Date of Admission: 06/23/18 11:59 Attending physician: Jabier Blake MD Time Spent in preparation of Discharge (in minutes): 36 Hospital Course - Lab Results Lab Results: Micro Results 06/23/18 20:11 Chin Gram Stain - Final 06/23/18 20:11 Chin Wound Culture - Final Methicillin Resistant S Aureus 06/20/18 20:00 Blood-Venous Blood Culture - Final NO GROWTH AFTER 5 DAYS 06/20/18 20:00 Blood-Venous Gram Stain - Final TEST NOT PERFORMED 06/20/18 20:10 Blood-Venous Blood Culture - Final NO GROWTH AFTER 5 DAYS 06/20/18 20:10 Blood-Venous Gram Stain - Final TEST NOT PERFORMED Most Recent Lab Values WBC 9.7 K/uL (4.8-10.8) 06/23/18 04:38 RBC 4.58 Mil/uL (3.80-5.20) 06/23/18 04:38 Hgb 13.7 g/dL (11.0-16.0) 06/23/18 04:38 Hct 40.8 % (34.0-47.0) 06/23/18 04:38 MCV 89.2 fL (81.0-99.0) 06/23/18 04:38 MCH 30.0 pg (27.0-31.0) 06/23/18 04:38 MCHC 33.6 g/dL (33.0-37.0) 06/23/18 04:38 RDW 13.7 % (11.5-14.5) 06/23/18 04:38 Plt Count 216 K/uL (130-400) 06/23/18 04:38 MPV 9.5 fL (7.2-11.7) 06/23/18 04:38 Neut % (Auto) 45.5 % (50.0-75.0) L 06/23/18 04:38 Lymph % (Auto) 23.1 % (20.0-40.0) 06/23/18 04:38 Storey % (Auto) 11.6 % (0.0-10.0) H 06/23/18 04:38 Eos % (Auto) 19.2 % (0.0-4.0) H 06/23/18 04:38 Baso % (Auto) 0.6 % (0.0-2.0) 06/23/18 04:38 Neut # (Auto) 4.4 K/uL (1.8-7.0) 06/23/18 04:38 Lymph # (Auto) 2.2 K/uL (1.0-4.3) 06/23/18 04:38 Storey # (Auto) 1.1 K/uL (0.0-0.8) H 06/23/18 04:38 Eos # (Auto) 1.9 K/uL (0.0-0.7) H 06/23/18 04:38 Baso # (Auto) 0.1 K/uL (0.0-0.2) 06/23/18 04:38 Neutrophils % (Manual) 85 % (50-75) H 06/21/18 08:11 Lymphocytes % (Manual) 8 % (20-40) L 06/21/18 08:11 Monocytes % (Manual) 3 % (0-10) 06/21/18 08:11 Eosinophils % (Manual) 4 % (0-4) 06/21/18 08:11 Platelet Estimate Normal (NORMAL) 06/21/18 08:11 Sodium 140 mmol/L (132-148) 06/23/18 04:38 Potassium 3.7 mmol/L (3.6-5.2) 06/23/18 04:38 Chloride 104 mmol/L (98-107) 06/23/18 04:38 Carbon Dioxide 26 mmol/L (22-30) 06/23/18 04:38 Anion Gap 14 (10-20) 06/23/18 04:38 BUN 11 mg/dL (7-17) 06/23/18 04:38 Creatinine 0.6 mg/dL (0.7-1.2) L 06/23/18 04:38 Est GFR ( Amer) > 60 06/23/18 04:38 Est GFR (Non-Af Amer) > 60 06/23/18 04:38 Random Glucose 88 mg/dL (65-105) 06/23/18 04:38 Calcium 9.0 mg/dl (8.6-10.4) 06/23/18 04:38 Total Bilirubin 0.6 mg/dL (0.2-1.3) 06/23/18 04:38 AST 19 U/L (14-36) 06/23/18 04:38 ALT 43 U/L (9-52) 06/23/18 04:38 Alkaline Phosphatase 70 U/L (38-126) 06/23/18 04:38 Total Protein 7.1 g/dL (6.3-8.3) 06/23/18 04:38 Albumin 3.8 g/dL (3.5-5.0) 06/23/18 04:38 Globulin 3.3 gm/dL (2.2-3.9) 06/23/18 04:38 Albumin/Globulin Ratio 1.1 (1.0-2.1) 06/23/18 04:38 Vancomycin Trough 8.8 ug/mL (5.0-10.0) 06/23/18 04:37 - Hospital Course Hospital Course: Patient is admitted with swelling of the lower part of the jaw. Patient originally had a pimple which grew suddenly in her short-term with moderate amount of swelling and induration in the lower part of the left side of the jaw extending to the angle of the mandible. There is no any gum disease or teeth problems or swallowing patient has no any sinus infection patient has no previous any medical illness except for hypothyroidism. Patient was evaluated in the ER CAT scan showed some indurated subcutaneous infection and patient is admitted for IV antibiotics Patient was given double antibiotics as per ID patient swelling subsided 50% and then patient had a small opening of the skin with some purulent material oozing. The culture and sensitivity of the fluid showed MRSA. Patient currently has no fever or pain or any other oral or pharyngeal complaints Patient is now discharged on by mouth Zyvox and be followed as an outpatient. Discharge Exam - Head Exam Head Exam: NORMOCEPHALIC Discharge Plan - Discharge Medications Prescriptions: Ibuprofen [Advil] 400 mg PO BID PRN 7 Days tablet PRN Reason: Pain, Moderate (4-7) Linezolid [Zyvox] 600 mg PO BID #10 tab - Follow Up Plan Condition: STABLE Disposition: HOME/ ROUTINE Instructions: How to Wash Your Hands Properly, MRSA (DC), Cellulitis (Skin Infection), Adult (DC), Ibuprofen, Linezolid Additional Instructions: Discharge home as per Dr. Blake Follow up with MD in the office in 1 week Take Zyvox 600mg by mouth twice a day x [address] Santos Contact precautions / Wash hands frequently Referrals: Jimmie Santos MD [Staff Provider] - Jabier Blake MD [Staff Provider] -
--- NOTE | 2018-06-26 21:35 | OP ---
PROCEDURE DATE: 06/26/2018 PREOPERATIVE DIAGNOSIS: Facial abscess. POSTOPERATIVE DIAGNOSIS: Facial abscess. PROCEDURE: Incision and drainage of facial abscess. DESCRIPTION OF PROCEDURE: The patient was placed in seated position. The area of small fluid drainage was noted. It was felt that the abscess had opened slightly. Clamp was used to enter the area and open it better loculation inside. Bleeding was controlled with pressure. abscess which needed to be opened and drained widely. Forrest French MD
== END 2018-06-26 14:33 | disposition home or self-care (01) | DRG 603 ==
LOC: C.ER 12:46 → C.9E 17:19 → C.3T 17:48 → OBSVTOIN 06-23 11:59 → C.3T 06-26 09:47
PROVIDERS: ADMIT Internal Medicine Cardiovascular Disease; ATTEND Internal Medicine Cardiovascular Disease
PROC: 0H91XZZ Drainage of Face Skin, External Approach (ICD-10-PCS; principal; 2018-06-26)
DX: L03.211 Cellulitis of face (principal); L02.01 Cutaneous abscess of face; E03.9 Hypothyroidism, unspecified; B95.62 Methicillin resistant Staphylococcus aureus infection as the cause of diseases classified elsewhere